=== PATIENT | male | born 1970 | race Caucasian/White ===

== ENCOUNTER 2023-10-17 05:56 | Emergency (ER) | payer OTHER, BC, SELFPAY ==
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
--- NOTE | ~2023-10-17 | XR_ITS ---
Right Hand Technique: PA, oblique, and lateral views were obtained. Clinical History: Pain Findings: No acute fracture or dislocation is seen. Osseous alignment is anatomic. Joint spaces are p reserved. Soft tissues are unremarkable. Impression: Unremarkable right hand. Reviewed, dictated and finalized at location M. SENIOR ANALYST Impression: Unremarkable right hand.
[2023-10-17 05:51] VITALS: BP 123/92; PULSE 94; RESP 15; TEMP 36.4; O2SAT 99
--- NOTE | 2023-10-17 05:57 | ECG_ITS ---
Measurements Intervals [place] Rate: 78 P: 42 SC: 144 QRS: 7 QRSD: 91 T: -14 QT: 336 QTc: 383 Interpretive Statements SINUS RHYTHM NONSPECIFIC T-WAVE ABNORMALITY- INFERIOR LEADS BORDERLINE ECG NO PREVIOUS ECG AVAILABLE FOR COMPARISON Electronically Signed On 10-17-2023 6:42:13 FIELD CLINICAL ENGINEER by Ronald Simons D.O.
[2023-10-17 06:05] VITALS: O2SAT 100
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
[2023-10-17] MEDS: ACETAMINOPHEN 500 MG TABLET 1000 MG PO (06:09)
[2023-10-17] MEDS: KETOROLAC 15 MG/ML VIAL (*BKC) IV PUSH (06:10)
[2023-10-17] MEDS: methocarbamoL 750 MG TABLET 1500 MG PO (06:10)
[2023-10-17] MEDS: oxyCODONE HCL (*CRX) 5 MG TAB IR PO (07:09)
[2023-10-17 07:30] VITALS: BP 144/87; PULSE 95; RESP 17; O2SAT 100
== END 2023-10-17 08:01 | disposition home or self-care (01) ==
PROVIDERS: Emergency Provider Emergency Medicine
DX: S22.22XA Fracture of body of sternum, initial encounter for closed fracture (principal); M79.641 Pain in right hand; N40.0 Benign prostatic hyperplasia without lower urinary tract symptoms; E78.00 Pure hypercholesterolemia, unspecified; R94.31 Abnormal electrocardiogram [ECG] [EKG]; V43.22XA Person on outside of car injured in collision with other type car in nontraffic accident, initial encounter
CPT/HCPCS: 71250; 73130; 93005; 96374; 99284; A9270; J1885